=== PATIENT | female | born 1955 | race Caucasian/White ===

== ENCOUNTER → 2016-12-25 | Outpatient (CLI) | payer BC ==
--- NOTE | 2016-12-25 09:54 | MM ---
Reason for exam: additional evaluation requested from prior study. Last mammogram was performed 1 year ago. History: Patient is postmenopausal and has history of breast cancer at age 34. Retro-pectoral saline implants in both breasts, 1989. Reduction of the right breast, 1989. Chemotherapy, April 1989. Mastectomy of the left breast, February 1989. Physical Findings: Nurse did not find any significant physical abnormalities on exam. MG 3D Diag Mammo Imp W/Cad RT CC, MLO, and ID view(s) were taken of the right breast. Prior study comparison: December 13, 2015, right breast MG diag mamm implant RT w CAD. November 15, 2014, right breast MG diagnostic mammo RT w CAD. The breast tissue is extremely dense which could obscure a lesion on mammography. Stable benign calcifications. Implant is intact. No significant new findings when compared with previous films. These results were verbally communicated with the patient and result sheet given to the patient on 12/25/16. ASSESSMENT: Benign, BI-RAD 2 RECOMMENDATION: Follow-up diagnostic mammogram of the right breast in 1 year.
== END | disposition home or self-care (01) ==
LOC: RADMAMWWP 08:14
PROVIDERS: ATTEND Internal Medicine Hematology & Oncology
DX: Z08 Encounter for follow-up examination after completed treatment for malignant neoplasm (principal); Z85.3 Personal history of malignant neoplasm of breast
CPT/HCPCS: G0206; G0279

== ENCOUNTER → 2017-05-17 | Day surgery (SDC) | payer BC ==
[2017-05-15 12:27] VITALS: BMI 23.6
[~2017-05-17] MED LIST: LACTATED RINGERS 1,000 ML IV SCH; LIDOCAINE 1% 20 ML VIAL (10MG/ML) FOR IV START INTRADERMA ONE; MIDAZOLAM 2 MG/2 ML VIAL ONE; PROPOFOL 10 MG/ML 20 ML VIAL IV ONE; fentaNYL (PF) 50 MCG/ML 2 ML AMP ONE
[2017-05-17 08:15] VITALS: RESP 18; TEMP 97.9
--- NOTE | 2017-05-17 09:01 | P.PCN ---
Date of Procedure: 05/17/17 Procedure(s) Performed: BRIEF HISTORY: Patient is a 62-year-old pleasant white female scheduled for an elective colonoscopy as a part of evaluation of screening for colorectal neoplasia. PROCEDURE PERFORMED: Colonoscopy with snare polypectomy. PREOPERATIVE DIAGNOSIS: Screening for colorectal neoplasia. . IV sedation per Anesthesia. PROCEDURE: After informed consent was obtained, the patient, was brought into the endoscopy unit. IV sedation was administered by Anesthesia under continuous monitoring. Digital rectal examination was normal. Initially the Olympus CF- 160 flexible video colonoscope was then inserted in the rectum, gradually advanced into the cecum without any difficulty. Careful examination was performed as the scope was gradually being withdrawn. Ileocecal valve and the appendiceal orifice were visualized and appeared normal. Prep was excellent. Mucosa of the cecum, ascending colon, transverse colon, descending colon, sigmoid colon, appeared normal. In the distal sigmoid colon, at 28 cm from the anal verge, there was a 1.5 cm broad-based polyp removed by snare polypectomy. The rectum appeared normal. Retroflexion was performed in the rectum and no lesions were seen. The patient tolerated the procedure well. IMPRESSION: 1.5 cm broad-based distal sigmoid colon polyp status post polypectomy. RECOMMENDATIONS: Findings of this examination were discussed with the patient as well as a family. She was advised to follow with the biopsy results. If the biopsy shows a tubular adenoma she can have a repeat colonoscopy in 3 years.
[2017-05-17 09:30] VITALS: BP 94/63; PULSE 66
== END ==
LOC: ORWHC2ENDO 07:49
PROVIDERS: ATTEND Internal Medicine Gastroenterology
DX: Z12.11 Encounter for screening for malignant neoplasm of colon (principal); D12.5 Benign neoplasm of sigmoid colon; Z91.041 Radiographic dye allergy status
CPT/HCPCS: 88305; 45385; J2250; J3010; J2704

== ENCOUNTER → 2018-03-11 | Outpatient (CLI) | payer MEDICARE ==
--- NOTE | 2018-03-11 10:47 | MM ---
Reason for exam: additional evaluation requested from prior study. Last mammogram was performed 1 year and 2 months ago. History: Patient is postmenopausal and has history of breast cancer at age 34. Retro-pectoral saline implants in both breasts, 1989. Reduction of the right breast, 1989. Chemotherapy, April 1989. Mastectomy of the left breast, February 1989. Physical Findings: Nurse did not find any significant physical abnormalities on exam. MG Diag Mamm Implant RT w CAD CC, MLO, and ID view(s) were taken of the right breast. Prior study comparison: December 25, 2016, right breast MG 3d diag mammo imp w/cad RT. December 13, 2015, right breast MG diag mamm implant RT w CAD. The breast tissue is extremely dense which could obscure a lesion on mammography. No significant new findings when compared with previous films. These results were verbally communicated with the patient and result sheet given to the patient on 03/11/18. ASSESSMENT: Benign, BI-RAD 2 RECOMMENDATION: Follow-up diagnostic mammogram of the right breast in 1 year.
== END | disposition home or self-care (01) ==
LOC: RADMAMWWP 09:47
PROVIDERS: ATTEND Internal Medicine Hematology & Oncology
DX: Z08 Encounter for follow-up examination after completed treatment for malignant neoplasm (principal); Z85.3 Personal history of malignant neoplasm of breast
CPT/HCPCS: 77065

== ENCOUNTER → 2018-10-23 | Outpatient (CLI) | payer MEDICARE ==
--- NOTE | 2018-10-23 17:33 | BD ---
EXAMINATION TYPE: Axial Bone Density DATE OF EXAM: 10/23/2018 COMPARISON: 2017 CLINICAL HISTORY: 63-year-old female age-related osteoporosis Height: 71 inches Weight: 172 FRAX RISK QUESTIONS: Alcohol (3 or more units per day): no Family History (Parent hip fracture): yes Glucocorticoids (More than 3mos): no (Ex: prednisone, prednisolone, methylprednisolone, dexamethasone, and hydrocortisone). History of Fracture in Adulthood: yes; wrist, toe Secondary Osteoporosis: 1. Type 1 Diabetes: no 2. Hyperthyroidism: no 3. Menopause before 45: no,partial hysterectomy age 41 4. Malnutrition: no 5. Chronic liver disease: no Rheumatoid Arthritis: no Current Tobacco Use: no RISK FACTORS HISTORY OF: History of Wrist Fracture: yes, right When: 1984 Family History of Osteoporosis: no Active: yes Diet low in dairy products/other sources of calcium: at least one serving a day Postmenopausal woman: yes Take estrogen and/or progesterone medications: no Lost more than 2 inches in height since high school: no Frequent falls: no Poor Health: no Hyperparathyroidism: no Adrenal Insufficiency: no MEDICATIONS: Prednisone or other steroids: no Thyroid Medications: no Osteoporosis Medications:no Additional Medications: none Additional History: breast CA age 34 EXAM MEASUREMENTS: Bone mineral densitometry was performed using the [employer] System. Bone mineral density as measured about the Lumbar spine is: ----- L1-L4(G/cm2): 1.179 T Score Values are as follows: ----- L2: -0.7 ----- L3: 0.5 ----- L4: 0.5 ----- L1-L4: 0.0 Bone mineral density has: Increased 3.4% since study of: 03/08/2017 Bone mineral density about the R hip (g/cm2): 0.896 Bone mineral density about the L hip (g/cm2): 0.872 T Score values are as follows: -----R Neck: -1.2 -----L Neck: -1.0 -----R Total: -0.7 -----L Total: -0.6 Bone mineral density has: Decreased -1.9% since study of: 03/08/2017 IMPRESSION: Osteopenia (T Score between -2.5 and -1). There is slightly increased risk of fracture and the patient may be considered for treatment. Re-Screen 2-5 years. NOTE: T-SCORE=SD OF THE YOUNG ADULT MEAN.
== END | disposition home or self-care (01) ==
LOC: RADBDWWP 10:31
PROVIDERS: ATTEND Internal Medicine
DX: M85.88 Other specified disorders of bone density and structure, other site (principal)
CPT/HCPCS: 77080

== ENCOUNTER 2019-10-22 07:22 | Observation (INO) | payer MEDICARE ==
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
[2019-10-22 08:03] LABS: Basophils % (A) 0 %; Eosinophils # (A) 0.2 k/uL (0-0.7); Eosinophils % (A) 2 %; HCT 45.5 % (34.0-46.0); HGB 14.9 gm/dL (11.4-16.0); Lymphocytes # (A) 1.2 k/uL (1.0-4.8); Lymphocytes % (A) 12 %; MCH 32.1 pg (25.0-35.0); MCHC 32.8 g/dL (31.0-37.0); MCV 97.8 fL (80.0-100.0); Mean Platelet Volume 8.9; Monocytes # (A) 0.5 k/uL (0-1.0); Monocytes % (A) 5 %; Neutrophils # (A) 7.9 k/uL (1.3-7.7); Neutrophils % (A) 80 %; Platelet Count 244 k/uL (150-450); RBC 4.65 m/uL (3.80-5.40); RDW 12.1 % (11.5-15.5); WBC 9.9 k/uL (3.8-10.6)
[2019-10-22 08:16] LABS: INR 0.9 (<1.2); Partial Thromboplastin Time 22.1 sec (22.0-30.0); Prothrombin Time 9.6 sec (9.0-12.0)
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
[2019-10-22 08:39] LABS: ALT 40 U/L (4-34); AST 45 U/L (14-36); African American GFR (CKD) >90 (>60 ml/min/1.73 sqM); Albumin 4.4 g/dL (3.5-5.0); Alkaline Phosphatase 70 U/L (38-126); Anion Gap 9 mmol/L; Blood Urea Nitrogen 12 mg/dL (7-17); Calcium 9.2 mg/dL (8.4-10.2); Carbon Dioxide 25 mmol/L (22-30); Chloride 106 mmol/L (98-107); Glucose 102 mg/dL (74-99); Non-African American GFR(CKD) >90 (>60 ml/min/1.73 sqM); Potassium 4.5 mmol/L (3.5-5.1); Sodium 140 mmol/L (137-145); Total Bilirubin 0.5 mg/dL (0.2-1.3); Total Protein 7.3 g/dL (6.3-8.2)
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
[2019-10-22] MEDS ORDERED: NALOXONE 0.4 MG/ML 1 ML VIAL IV PRN (10:08)
[2019-10-22] MEDS ORDERED: SODIUM CHLORIDE 0.9% 1,000 ML IV SCH (10:15)
--- NOTE | 2019-10-22 11:15 | US ---
EXAMINATION TYPE: US carotid duplex BILAT DATE OF EXAM: 10/22/2019 COMPARISON: NONE CLINICAL HISTORY: syncope. Syncope EXAM MEASUREMENTS: RIGHT: Peak Systolic Velocity (PSV) cm/sec ----- Right CCA: 56.5 ----- Right ICA: 76.3 ----- Right ECA: 59.0 ICA/CCA ratio: 1.3 RIGHT: End Diastole cm/sec ----- Right CCA: 20.5 ----- Right ICA: 32.2 ----- Right ECA: 13.0 LEFT: Peak Systolic Velocity (PSV) cm/sec ----- Left CCA: 64.9 ----- Left ICA: 85.6 ----- Left ECA: 79.4 ICA/CCA ratio: 1.3 LEFT: End Diastole cm/sec ----- Left CCA: 20.8 ----- Left ICA: 34.0 ----- Left ECA: 13.4 VERTEBRALS (direction of flow): Right Vertebral: Antegrade Left Vertebral: Antegrade Rhythm: Arrhythmia Bilateral intimal thickening, no elevated velocities, no significant stenosis. Grayscale, color Doppler, spectral Doppler imaging performed of the carotid arteries. Waveform analys is does not show significant stenosis. IMPRESSION: No hemodynamic significant stenosis of the proximal internal carotid arteries by Doppler criteria, an indirect measurement of carotid stenosis. Incidental note made of cardiac arrhythmia.
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
[2019-10-22 18:28] LABS: Amphetamine Screen,Urine Not Detected (NotDetected); Barbiturate Screen,Urine Not Detected (NotDetected); Benzodiazepines Screen,Urine Not Detected (NotDetected); Cocaine Screen,Urine Not Detected (NotDetected); Methadone Screen, Urine Not Detected (NotDetected); Opiate Screen,Urine Not Detected (NotDetected); Oxycodone Screen, Urine Not Detected (NotDetected); Phencyclidine Screen,Urine Not Detected (NotDetected); Tricyclic Antidepressant,Urine Not Detected (NotDetected); Urn Cannabinoid Scrn Not Detected (NotDetected)
--- NOTE | 2019-10-22 19:30 | EEG ---
ELECTROENCEPHALOGRAM REPORT DATE OF SERVICE: 10/22/2019 PREAMBLE: This is a 64-year-old female with a syncopal spell. This study is performed to rule out any epileptiform activity. EEG FINDINGS: This is a 21-channel routine EEG recording in a patient utilizing 10-20 international system with referential and bipolar montages. The background consists of well developed, well regulated, moderate voltage activity in 9-10 hertz alpha. Background is posterior-dominant and reactive to eye opening and closing. Photic driving response was seen with some flash frequencies. Drowsiness and stage 2 sleep were seen with appearance of generalized mixed theta and delta activity with sleep spindles, vertex waves and K complexes. No definitive focal or generalized epileptiform activity was seen. EKG rhythm lead revealed no obvious arrhythmia. IMPRESSION: This is a normal EEG during wakefulness, drowsiness and stage 2 sleep. No definitive epileptiform activity was seen. MMODL / IJN: [id number] /
[2019-10-22] MEDS ORDERED: diphenhydrAMINE 25 MG CAP PO PRN (22:13)
[2019-10-22] MEDS ORDERED: ACETAMINOPHEN TAB 325 MG TAB PO PRN (22:13)
[2019-10-23 01:22] VITALS: RESP 16
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
[2019-10-23] MEDS ORDERED: PANTOPRAZOLE 40 MG TABLET PO SCH (07:30)
[2019-10-23] MEDS ORDERED: HEPARIN SODIUM,PORCINE 5,000 UNIT/ML 1 ML VIAL SQ SCH (08:00)
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
[2019-10-23 08:56] VITALS: BP 119/65; PULSE 77; TEMP 97.7
--- NOTE | 2019-10-23 11:00 | ECHOF ---
Referral Reason:syncope MEASUREMENTS -------- HEIGHT: 180.3 cm WEIGHT: 77.6 kg BP: 120/70 RVIDd: 3.3 cm (< 3.3) IVSd: 1.2 cm (0.6 - 1.1) LVIDd: 3.8 cm (3.9 - 5.3) LVPWd: 1.3 cm (0.6 - 1.1) IVSs: 1.6 cm LVIDs: 2.7 cm LVPWs: 1.9 cm LAESV Index (A-L): 24.90 ml/m Ao Diam: 2.7 cm (2.0 - 3.7) AV Cusp: 2.0 cm (1.5 - 2.6) MV EXCURSION: 10.738 mm (> 18.000) MV EF SLOPE: 71 mm/s (70 - 150) EPSS: 0.5 cm MV E Segun: 0.43 m/s MV DecT: 328 ms MV A Segun: 0.82 m/s MV E/A Ratio: 0.53 RAP: 5.00 mmHg RVSP: 20.27 mmHg FINDINGS -------- This was a technically adequate study. The left ventricular size is normal. There is mild concentric left ventricular hypertrophy. Overa ll left ventricular systolic function is normal with, an EF between 55 - 60 %. The diastolic fillin g pattern is normal for the age of the patient {E/E'}. The right ventricle is mildly enlarged. Moderator band is visualized in the right ventricular apex. Normal LA size by volume 22+/-6 ml/m2. The right atrial size is normal. Mobile interatrial septum. The aortic valve is trileaflet and appears structurally normal. There is no evidence of aortic regu rgitation. There is no evidence of aortic stenosis. No mitral regurgitation. Mild tricuspid regurgitation present. There is no evidence of pulmonary hypertension. The right v entricular systolic pressure, as measured by Doppler, is 20.27mmHg. There is no pulmonic regurgitation present. The aortic root size is normal. Normal inferior vena cava with normal inspiratory collapse consistent with estimated right atrial pre ssure of 5 mmHg. There is no pericardial effusion. CONCLUSIONS -------- 1. This was a technically adequate study. 2. The left ventricular size is normal. 3. There is mild concentric left ventricular hypertrophy. 4. Overall left ventricular systolic function is normal with, an EF between 55 - 60 %. 5. The diastolic filling pattern is normal for the age of the patient {E/E'} 6. The right ventricle is mildly enlarged. 7. Moderator band is visualized in the right ventricular apex. 8. Normal LA size by volume 22+/-6 ml/m2. 9. The right atrial size is normal. 10. Mobile interatrial septum. 11. The aortic valve is trileaflet and appears structurally normal. 12. There is no evidence of aortic regurgitation. 13. There is no evidence of aortic stenosis. 14. No mitral regurgitation. 15. Mild tricuspid regurgitation present. 16. There is no evidence of pulmonary hypertension. 17. The right ventricular systolic pressure, as measured by Doppler, is 20.27mmHg. 18. There is no pulmonic regurgitation present. 19. The aortic root size is normal. 20. Normal inferior vena cava with normal inspiratory collapse consistent with estimated right atrial pressure of 5 mmHg. 21. There is no pericardial effusion. [employer]: Bridgette Knutson RDCS
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
== END 2019-10-23 13:40 | disposition home or self-care (01) ==
LOC: EC 07:22 → 1SOBS 10:16
PROVIDERS: ADMIT Internal Medicine; ATTEND Internal Medicine
DX: R55 Syncope and collapse (principal); S80.212A Abrasion, left knee, initial encounter; S80.211A Abrasion, right knee, initial encounter; S60.812A Abrasion of left wrist, initial encounter; S00.31XA Abrasion of nose, initial encounter; M50.30 Other cervical disc degeneration, unspecified cervical region; M51.36 Other intervertebral disc degeneration, lumbar region; Y93.55 Activity, bike riding; V18.4XXA Pedal cycle driver injured in noncollision transport accident in traffic accident, initial encounter; Z87.828 Personal history of other (healed) physical injury and trauma; Z91.041 Radiographic dye allergy status; Z88.8 Allergy status to other drugs, medicaments and biological substances; Z85.3 Personal history of malignant neoplasm of breast; Z92.21 Personal history of antineoplastic chemotherapy; Z90.12 Acquired absence of left breast and nipple; Z86.010 Personal history of colon polyps; Z82.49 Family history of ischemic heart disease and other diseases of the circulatory system; Z83.3 Family history of diabetes mellitus; Z82.0 Family history of epilepsy and other diseases of the nervous system
CPT/HCPCS: 99285; 36415; 95819; 93005; 93306; 80053; 84484; 85025; 85610; 85730; 80306; 73110; 73562; 71046; 93880; 70450; G0378 ×2; G0480; 80320

== ENCOUNTER → 2020-02-24 | Outpatient (CLI) | payer MEDICARE | END | disposition home or self-care (01) | LOC: LABWHC1 11:55 | PROVIDERS: ATTEND Internal Medicine | DX: Z20.828 Contact with and (suspected) exposure to other viral communicable diseases (principal) | CPT/HCPCS: U0003; C9803 ==

== ENCOUNTER → 2020-03-08 | Outpatient (CLI) | payer MEDICARE ==
--- NOTE | 2020-03-08 09:51 | MM ---
Reason for exam: additional evaluation requested from prior study. Last mammogram was performed 2 years ago. History: Patient is postmenopausal and has history of breast cancer at age 34. Implants in both breasts, 2019. Retro-pectoral saline implants in both breasts, 1989. Reduction of the right breast, 1989. Chemotherapy, April 1989. Mastectomy of the left breast, February 1989. Physical Findings: Nurse did not find any significant physical abnormalities on exam. MG 3D Diag Mammo Imp W/Cad RT CC, MLO, and ID view(s) were taken of the right breast. Prior study comparison: March 11, 2018, right breast MG diag mamm implant RT w CAD. December 25, 2016, right breast MG 3d diag mammo imp w/cad RT. The breast tissue is heterogeneously dense. This may lower the sensitivity of mammography. Benign oil cyst and vascular calcifications. Retropectoral silicone implant. No significant new findings when compared with previous films. These results were verbally communicated with the patient and result sheet given to the patient on 03/08/20. ASSESSMENT: Negative, BI-RAD 1 RECOMMENDATION: Routine screening mammogram of the right breast in 1 year.
== END | disposition home or self-care (01) ==
LOC: RADMAMWWP 08:52
PROVIDERS: ATTEND Internal Medicine Hematology & Oncology
DX: R92.8 Other abnormal and inconclusive findings on diagnostic imaging of breast (principal); Z85.3 Personal history of malignant neoplasm of breast
CPT/HCPCS: 77065; G0279; 77061

== ENCOUNTER → 2020-06-28 | Outpatient (CLI) | payer MEDICARE ==
--- NOTE | 2020-06-28 13:51 | XR ---
EXAMINATION TYPE: XR chest 2V DATE OF EXAM: 06/28/2020 COMPARISON: 10/22/2019 TECHNIQUE: PA and lateral views submitted. HISTORY: Cough FINDINGS: The lungs are clear and there is no pneumothorax, pleural effusion, or focal pneumonia. Hyperinflat ion. Biapical pleural thickening. Surgical clips in the left axilla. Heart is enlarged no overt failu re. Surgical clips overlying the axilla. IMPRESSION: 1. No acute process. 2. COPD.
== END | disposition home or self-care (01) ==
LOC: RADXRMAIN 12:49
PROVIDERS: ATTEND Internal Medicine
DX: J44.9 Chronic obstructive pulmonary disease, unspecified (principal); R05 Cough
CPT/HCPCS: 71046

== ENCOUNTER → 2020-07-04 | Outpatient (CLI) | payer MEDICARE ==
--- NOTE | 2020-07-04 11:27 | CT ---
EXAMINATION TYPE: CT angio chest DATE OF EXAM: 07/04/2020 10:45 AM COMPARISON: Chest x-ray June 28, 2020 HISTORY: Elevated D dimer. History of left-sided breast cancer. CT DLP: 187.6 mGycm Automated exposure control for dose reduction was used. CONTRAST: CTA scan of the thorax is performed with IV Contrast, patient injected with 100 mL of Isovue 370, pul monary embolism protocol. MIP images are created and reviewed. FINDINGS: LUNGS: Mild to moderate biapical pleural/parenchymal scarring. Dependent atelectasis bilateral lower lobes. Mild to moderate linear scarring and/or atelectasis in both bases near diaphragm. No suspiciou s nodules or masses. No suspicious focal consolidation. No pleural effusion or pneumothorax identifie d. MEDIASTINUM: There is satisfactory enhancement of the pulmonary artery and its branches, there is no CT evidence for pulmonary embolism. There are no greater than 1 cm hilar or mediastinal lymph nodes. No pericardial effusion is seen. Heart size upper limits of normal. Aneurysm of the ascending aort a to 4.2 cm axial image 74. OTHER: Subcentimeter low density lesion right hepatic dome anteriorly at [place] 124 too small to fu rther characterize presumed benign. Rim calcified 2.7 cm low dense lesion near the splenic hilum lik jaylin reflects product of prior splenic artery aneurysm embolization stated and patient history. Bilate ral subpectoral breast implants, asymmetric decreased size of right breast implant versus left breast implant is noted. Surgical clips in the left axilla noted. No suspicious greater than 1 cm left axil rodrigo adenopathy. Right breast shows suspicious prominent but just under 1 cm adenopathy for reference 1.1 x 0.7 cm lymph node on image 33 and just superior lateral to this 1.1 x 0.9 cm lymph node axial image 31. No obvious adenopathy recent right breast mammogram March 08, 2020. IMPRESSION: 1. No CT evidence for acute pulmonary embolism. No suspicious acute pulmonary process. 2. Ascending aortic aneurysm up to 4.2 cm in diameter. 3. Nonspecific prominent right axillary lymph nodes. Correlate clinically. Consider dedicated axillar y ultrasound to further evaluate.
== END | disposition home or self-care (01) ==
LOC: RADCTMAIN 06-30 17:57
PROVIDERS: ATTEND Internal Medicine
DX: I71.2 Thoracic aortic aneurysm, without rupture (principal); Z85.3 Personal history of malignant neoplasm of breast
CPT/HCPCS: 71275; Q9967

== ENCOUNTER → 2020-07-05 | Outpatient (CLI) | payer MEDICARE ==
--- NOTE | 2020-07-05 13:34 | ECHOS ---
STRESS ECHOCARDIOGRAM LUMASON: N/A Vial INDICATIONS: Chest pain. MEDICATIONS: BASELINE HEART RATE: 78 BASELINE BLOOD PRESSURE: 138/83 MAXIMUM HEART RATE: 143 MAXIMUM BLOOD PRESSURE: 172/70. 85% MPHR: 130 100% MPHR: 153 METS: 10.3 MAXIMUM STAGE REACHED: 3 TOTAL EXERCISE TIME: 9 minutes CLINICAL INFORMATION: STRESS DATA: Pre-testing physical examination showed a heart rate of 78, pressure is 138/83 mmHg. Baseline EKG showed sinus mechanism. The patient exercised on the treadmill according to Brian protocol for a total of 9 minutes and achieved 10.3 METs. Max heart rate was 143, which is about 95% of maximum predicted heart rate with maximum blood pressure of 172/70 mmHg. Clinically, the patient did not have any symptoms of chest pain or chest discomfort. The EKG did not show any significant ST or T-wave abnormalities concerning for ischemia. ECHOCARDIOGRAM IMAGES: On echocardiogram images from parasternal long axis view, parasternal short axis view, apical 4 chamber and apical 2 chambers were obtained as the baseline images, at the peak of the heart rate as well as on recovery and the echocardiogram images showed good augmentation in the left ventricular systolic function. CONCLUSION: 1. Excellent exercise tolerance. 2. Normal EKG in response to exercise. 3. Normal echocardiogram in response to exercise. MMODL / IJN: [id number] /
== END | disposition home or self-care (01) ==
LOC: RADNMMAIN 09:48
PROVIDERS: ATTEND Internal Medicine
DX: R07.9 Chest pain, unspecified (principal)
CPT/HCPCS: C8930; Q9950; 93351

== ENCOUNTER → 2020-07-19 | Outpatient (CLI) | payer MEDICARE ==
--- NOTE | 2020-07-19 09:01 | MM ---
Reason for exam: additional evaluation requested from prior study. Last mammogram was performed 4 months ago. History: Patient is postmenopausal and has history of breast cancer at age 34. Implants in both breasts, 2018. Retro-pectoral saline implants in both breasts, 1989. Reduction of the right breast, 1989. Chemotherapy, April 1989. Mastectomy of the left breast, February 1989. Physical Findings: Nurse did not find any significant physical abnormalities on exam. MG 3D Diag Mammo Imp W/Cad RT CC, MLO, and ID view(s) were taken of the right breast. Prior study comparison: March 08, 2020, right breast MG 3d diag mammo imp w/cad RT. March 11, 2018, right breast MG diag mamm implant RT w CAD. The breast tissue is heterogeneously dense. This may lower the sensitivity of mammography. Right breast prothesis. No significant new findings when compared with previous films. These results were verbally communicated with the patient and result sheet given to the patient on 07/19/20. ASSESSMENT: Benign, BI-RAD 2 RECOMMENDATION: Follow-up diagnostic mammogram of the right breast in 1 year.
--- NOTE | 2020-07-19 09:04 | USB ---
Reason for exam: clinical finding. History: Patient is postmenopausal and has history of breast cancer at age 34. Implants in both breasts, 2019. Retro-pectoral saline implants in both breasts, 1989. Reduction of the right breast, 1989. Chemotherapy, April 1989. Mastectomy of the left breast, February 1989. US Breast Axilla RT Right breast axilla ultrasound demonstrates a 2.0 x 1.2 x 1.7cm lymph node at the axilla. Covid vaccination 1 month prior. Can cause prominent lymph nodes. Recommend short term follow up. These results were verbally communicated with the patient and result sheet given to the patient on 07/19/20. ASSESSMENT: Probably benign, BI-RAD 3 RECOMMENDATION: Ultrasound of the right breast in 1 month.
== END ==
LOC: RADMAMWWP 07:12
PROVIDERS: ATTEND Internal Medicine
DX: Z85.3 Personal history of malignant neoplasm of breast (principal); Z78.0 Asymptomatic menopausal state
CPT/HCPCS: 77065; 76642; G0279; 77061

== ENCOUNTER → 2020-08-19 | Outpatient (CLI) | payer MEDICARE ==
--- NOTE | 2020-08-22 10:08 | USB ---
Reason for exam: follow-up at short interval from prior study. History: Patient is postmenopausal and has history of breast cancer at age 34. Implants in both breasts, 2019. Retro-pectoral saline implants in both breasts, 1989. Reduction of the right breast, 1989. Chemotherapy, April 1989. Mastectomy of the left breast, February 1989. Physical Findings: Nurse did not find any significant physical abnormalities on exam. US Breast Axilla RT Technologist: Violette Calderon Right breast axilla ultrasound demonstrates a 2.1 x 0.9 x 0.7cm lymph node at the axilla, versus 2.0 x 1.7 x 1.2cm previously. Cortex 1.4mm, thin and benign appearing. Now decreased in size and unremarkable. Previous enhancement likely vaccine related. Scanned the right axilla. These results were verbally communicated with the patient and result sheet given to the patient on 08/19/20. ASSESSMENT: Benign, BI-RAD 2 RECOMMENDATION: Routine screening mammogram of both breasts in 11 months. Back on schedule for July 2021.
== END | disposition home or self-care (01) ==
LOC: RADUSWWP 10:03
PROVIDERS: ATTEND Internal Medicine
DX: N64.4 Mastodynia (principal); Z85.3 Personal history of malignant neoplasm of breast; Z78.0 Asymptomatic menopausal state

== ENCOUNTER → 2020-12-13 | Outpatient (CLI) | payer MEDICARE ==
--- NOTE | 2020-12-14 10:35 | USB ---
Reason for exam: follow-up at short interval from prior study. History: Patient is postmenopausal and has history of breast cancer at age 34. Implants in both breasts, 2019. Retro-pectoral saline implants in both breasts, 1989. Reduction of the right breast, 1989. Chemotherapy, April 1989. Mastectomy of the left breast, February 1989. Physical Findings: Nurse did not find any significant physical abnormalities on exam. US Breast Axilla RT Right breast axilla ultrasound demonstrates a 1.2 x 0.9cm oval lymph node at the axilla tail. These results were verbally communicated with the patient and result sheet given to the patient on 12/13/20. ASSESSMENT: Benign, BI-RAD 2 RECOMMENDATION: Routine screening mammogram of both breasts in 7 months. Back on schedule for July 2021.
== END | disposition home or self-care (01) ==
LOC: RADUSWWP 08:55
PROVIDERS: ATTEND Internal Medicine Hematology & Oncology
DX: Z08 Encounter for follow-up examination after completed treatment for malignant neoplasm (principal); Z78.0 Asymptomatic menopausal state; Z85.3 Personal history of malignant neoplasm of breast

== ENCOUNTER 2021-04-27 08:00 | Day surgery (SDC) | payer MEDICARE ==
[2021-04-25 12:08] VITALS: BMI 22.6
[~2021-04-27 08:00] MED LIST changes: -LIDOCAINE 1% 20 ML VIAL (10MG/ML) FOR IV START INTRADERMA ONE; -MIDAZOLAM 2 MG/2 ML VIAL ONE; -PROPOFOL 10 MG/ML 20 ML VIAL IV ONE; -fentaNYL (PF) 50 MCG/ML 2 ML AMP ONE
[2021-04-27 08:34] VITALS: RESP 16; TEMP 97.8
[2021-04-27] MEDS ORDERED: PROPOFOL 10 MG/ML 20 ML VIAL IV ONE (08:57)
--- NOTE | 2021-04-27 09:19 | P.PCN ---
Date of Procedure: 04/27/21 Procedure(s) Performed: BRIEF HISTORY: Patient is a 66-year-old pleasant white female scheduled for an elective colonoscopy as a part of prior history of colon polyps. Her last coloscopy was 3 years ago and was noted to have an adenoma. PROCEDURE PERFORMED: Colonoscopy With biopsy. PREOPERATIVE DIAGNOSIS: History of colon polyps. IV sedation per Anesthesia. PROCEDURE: After informed consent was obtained, the patient, was brought into the endoscopy unit. IV sedation was administered by Anesthesia under continuous monitoring. Digital rectal examination was normal. Initially the Olympus CF-160 flexible video colonoscope was then inserted in the rectum, gradually advanced into the cecum without any difficulty. Careful examination was performed as the scope was gradually being withdrawn. Ileocecal valve and the appendiceal orifice were visualized and appeared normal. Prep was excellent. Mucosa of the cecum and terminal meter polyp that was removed by cold biopsy. Rest of the, ascending colon, transverse colon, descending colon, sigmoid colon, and rectum appeared normal. The distal rectum there was a 5 limited polyp that was removed by cold biopsy Retroflexion was performed in the rectum and no lesions were seen. The patient tolerated the procedure well. IMPRESSION: 2 mm sessile cecal polyp status post cold biopsy 3 mm rectal polyp status post cold biopsy RECOMMENDATIONS: Findings of this examination were discussed with the patient well as her family. She was advised to follow with the biopsy result and have a repeat colonoscopy in 5 years..
[2021-04-27 09:50] VITALS: BP 101/62; PULSE 64
== END 2021-04-27 10:00 | disposition home or self-care (01) ==
LOC: ORWHC2ENDO 08:00
PROVIDERS: ATTEND Internal Medicine Gastroenterology
DX: D12.6 Benign neoplasm of colon, unspecified (principal); Z12.11 Encounter for screening for malignant neoplasm of colon; D12.0 Benign neoplasm of cecum; K62.1 Rectal polyp; Z86.010 Personal history of colon polyps; I71.4 Abdominal aortic aneurysm, without rupture; E78.5 Hyperlipidemia, unspecified; R56.9 Unspecified convulsions; Z98.42 Cataract extraction status, left eye; Z98.41 Cataract extraction status, right eye; Z90.10 Acquired absence of unspecified breast and nipple; Z98.890 Other specified postprocedural states; Z85.3 Personal history of malignant neoplasm of breast; Z79.899 Other long term (current) drug therapy; Z91.041 Radiographic dye allergy status
CPT/HCPCS: 88305; 45380; J2704

== ENCOUNTER → 2021-08-23 | Outpatient (CLI) | payer MEDICARE ==
--- NOTE | 2021-08-23 15:01 | BD ---
EXAMINATION TYPE: Axial Bone Density DATE OF EXAM: 08/23/2021 COMPARISON: 10/23/2018 CLINICAL HISTORY: 66 years year old Female. ICD-10 CODE: M81.0 AGE RELATED OSTEOPOROSIS Height: 70.5 IN Weight: 170 LBS FRAX RISK QUESTIONS: Family History (Parent hip fracture): MOTHER Secondary Osteoporosis: 3. Menopause before 45: PARTIAL HYST AGE 39 RISK FACTORS HISTORY OF: History of Wrist Fracture: RT WRIST AGE 38 Active: YES Diet low in dairy products/other sources of calcium: YES Postmenopausal woman: PARTIAL HYST AGE 39 MEDICATIONS: Additional Medications: STATIN, Additional History: BREAST CANCER WITH CHEMO EXAM MEASUREMENTS: Bone mineral densitometry was performed using the [employer]. Bone mineral density as measured about the Lumbar spine is: ----- L1-L4(G/cm2): 1.179 T Score Values are as follows: ----- L1: -0.9 ----- L2: -0.6 ----- L3: 0.4 ----- L4: 0.7 ----- L1-L4: 0.0 Bone mineral density has: Increased 0.6% since study of: 10/23/2018 Bone mineral density about the R hip (g/cm2): 0.856 Bone mineral density about the L hip (g/cm2): 0.908 T Score values are as follows: -----R Neck: -1.3 -----L Neck: -0.9 -----R Total: -0.8 -----L Total: -0.7 Bone mineral density has: Decreased -1.6% since study of: 10/23/2018 FRAX%s: The graph provided illustrates a 15.2 chance for a major osteoporotic fx and a 1.9 chance for the hips probability for fx in 10 years time. IMPRESSION: No evidence for osteoporosis or osteopenia NOTE: T-SCORE=SD OF THE YOUNG ADULT MEAN.
== END | disposition home or self-care (01) ==
LOC: RADBDWWP 12:48
PROVIDERS: ATTEND Internal Medicine
DX: M81.0 Age-related osteoporosis without current pathological fracture (principal)
CPT/HCPCS: 77080

== ENCOUNTER → 2021-10-26 | Outpatient (CLI) | payer MEDICARE ==
--- NOTE | 2021-10-26 15:57 | US ---
EXAMINATION TYPE: US thyroid st tissue head/neck DATE OF EXAM: 10/26/2021 COMPARISON: NONE CLINICAL HISTORY: E04.1 NONTOXIC SINGLE THYROID NODULE. F/U to CT scan GLAND SIZE: Right Lobe: 5.1 x 1.8 x 2.1 cm Overall Parenchyma: homogenous Left Lobe: 3.8 x .9 x 1.1 cm Overall Parenchyma: heterogeneous Isthmus Thickness: .3 cm NODULES RIGHT: # of nodules measured on right: 1 1. 1.9 X 1.5 x 1.9 cm, lower lateral, solid or almost completely solid, hypoechoic nodule, which is wider than tall, with smooth . TR 4 LEFT: # of nodules measured on left: 0 ISTHMUS: # of nodules measured in the isthmus: 0 Bilateral neck scanned, no evidence of lymphadenopathy. IMPRESSION: Moderately suspicious nodule. Fine-needle aspiration recommended. 2017 ACR TI-RADS LEVEL: TR-RADS 4 - Moderately Suspicious: Follow if > 1 cm, FNA if > 1.5 cm *Highest TI-RADS level nodule reported
== END | disposition home or self-care (01) ==
LOC: RADUSWWP 14:48
PROVIDERS: ATTEND Internal Medicine
DX: E04.1 Nontoxic single thyroid nodule (principal)
CPT/HCPCS: 76536

== ENCOUNTER → 2022-01-24 | Outpatient (CLI) | payer MEDICARE ==
--- NOTE | 2022-01-25 11:11 | NM ---
EXAMINATION TYPE: NM thyroid image w uptake DATE OF EXAM: 01/25/2022 COMPARISON: Thyroid ultrasound dated 10/26/2021 HISTORY: E04.1 TECHNIQUE: Thyroid iodine uptake is calculated and images performed after the oral administration of 295 uCi 1-123 Capsule. FINDINGS: There is abnormal decreased uptake in the lower pole of the right lobe of the gland which c orrelates with patient's thyroid nodule. The 4 hour iodine uptake is calculated at 1.3% (normal rang e 8-14%). The 24-hour iodine uptake is calculated at 30.0% (normal range 15-35%). IMPRESSION: Cold nodule lower pole right lobe of thyroid gland correlates with abnormal ultrasound.
== END | disposition home or self-care (01) ==
LOC: RADNMMAIN 09:48
PROVIDERS: ATTEND Internal Medicine
DX: E04.1 Nontoxic single thyroid nodule (principal)
CPT/HCPCS: 78014; A9516

== ENCOUNTER → 2022-08-30 | Outpatient (CLI) | payer MEDICARE ==
[2022-08-30 21:04] LABS: Appearance,Urine Clear (Clear); Bilirubin,Urine Negative (Negative); Blood,Urine Negative (Negative); Color,Urine Yellow (Yellow); Ketones,Urine Negative (Negative); Nitrite,Urine Negative (Negative); PH, Urine 6.5 (5.0-8.0); Specific Gravity,Urine 1.009 (1.001-1.030); Urobilinogen,Urine 0.2 (0.2,1.0)
[2022-08-31 01:53] LABS: Basophils # (A) 0.04 X 10*3/uL (0.00-0.10); Basophils % (A) 0.6 %; Eosinophils # (A) 0.13 X 10*3/uL (0.04-0.35); Eosinophils % (A) 2.1 %; HGB 13.7 g/dL (12.0-15.0); Immature Grans, Automated 0.2 %; Lymphocytes # (A) 1.88 X 10*3/uL (0.90-5.00); Lymphocytes % (A) 30.3 %; MCH 30.7 pg (27.0-32.0); MCHC 31.1 g/dL (32.0-37.0); MCV 98.7 fL (80.0-97.0); Mean Platelet Volume 12.1 fL (9.5-12.2); Monocytes # (A) 0.53 X 10*3/uL (0.20-1.00); Monocytes % (A) 8.5 %; NRBC Per 100 WBC 0 /100 WBCS (0.0-0.0); Neutrophils # (A) 3.62 X 10*3/uL (1.80-7.70); Neutrophils % (A) 58.3 %; Platelet Count 236 X 10*3/uL (140-440); RBC 4.46 X 10*6/uL (4.10-5.20); RDW 12.9 % (11.5-14.5); WBC 6.21 X 10*3/uL (4.50-10.00)
[2022-08-31 02:00] LABS: ALT 27 U/L (8-44); AST 26 U/L (13-35); African American GFR (CKD) 102.5 (60.0-200.0); Albumin 4.2 g/dL (3.8-4.9); Albumin/Globulin Ratio 1.62 (1.60-3.17); Alkaline Phosphatase 64 U/L (41-126); BUN/Creat Ratio 18.43 Ratio (12.00-20.00); Blood Urea Nitrogen 12.9 mg/dL (9.0-27.0); Calcium 9.5 mg/dL (8.7-10.3); Carbon Dioxide 27.4 mmol/L (20.0-27.5); Chloride 104 mmol/L (96-109); Chol/HDL Ratio 2.03 Ratio; Globulin 2.6 g/dL (1.6-3.3); Glucose 83 mg/dL (70-110); LDL Cholesterol,Calculated 70.8 mg/dL (0.0-131.0); Non-African American GFR(CKD) 88.4 (60.0-200.0); Potassium 4.3 mmol/L (3.5-5.5); Sodium 141 mmol/L (135-145); Total Protein 6.8 g/dL (6.2-8.2); VLDL Calculation 13.08 mg/dL (5.00-40.00)
== END | disposition home or self-care (01) ==
LOC: LABWHC1 14:37
PROVIDERS: ATTEND Internal Medicine
DX: C50.912 Malignant neoplasm of unspecified site of left female breast (principal); E78.2 Mixed hyperlipidemia; M47.816 Spondylosis without myelopathy or radiculopathy, lumbar region
CPT/HCPCS: 36415; 80053; 80061; 81003; 83036; 85025

== ENCOUNTER → 2022-09-20 | Outpatient (CLI) | payer MEDICARE ==
--- NOTE | 2022-09-21 18:14 | MM ---
Reason for Exam: Screening (asymptomatic). Last screening mammogram was performed 12 month(s) ago. Patient History: Menarche at age 10. First Full-Term at age 23. Hysterectomy at age 41. Postmenopausal. Breast cancer, left, age 34. Previous chemotherapy at age 34. 1989, Reduction on the Right side. 02/1989, Mastectomy on the Left side. 04/1989, Chemotherapy. 1989, Bilateral Implants. 2018, Bilateral Implants. Prior Study Comparison: 03/08/2020 Right Diagnostic Mammogram, [facility]. 07/19/2020 Right Diagnostic Mammogram, [facility]. 09/19/2021 Bilateral MG 3D scr janice unilateral w/cad, [facility]. Tissue Density: Right: The breast tissue is heterogeneously dense. This may lower the sensitivity of mammography. Findings: Retropectoral silicone implant. Benign vascular and will suggest calcifications. No significant change from prior exams. Overall Assessment: Benign, BI-RAD 2 Management: Screening Mammogram of the right breast in 1 year. . Patient should continue monthly self-breast exams. A clinical breast exam by your physician is recommended on an annual basis. This exam should not preclude additional follow-up of suspicious palpable abnormalities. Note on Trina scores and lifetime risk: 1. A Trina score greater than 3% is considered moderate risk. If this is the case, consider specialist referral to assess eligibility for a risk reducing agent. 2. If overall lifetime risk for the development of breast cancer is 20% or higher, the patient may qualify for future screening with alternating mammogram and breast MRI. Electronically signed and approved by: Natasha Coy M.D. Radiologist
== END | disposition home or self-care (01) ==
LOC: RADMAMWWP 09:09
PROVIDERS: ATTEND Internal Medicine Hematology & Oncology
DX: Z12.31 Encounter for screening mammogram for malignant neoplasm of breast (principal); Z78.0 Asymptomatic menopausal state
CPT/HCPCS: 77067

== ENCOUNTER → 2022-10-16 | Outpatient (CLI) | payer MEDICARE ==
[2022-10-16 10:47] LABS: African American GFR (CKD) >90 (>60 ml/min/1.73 sqM); Blood Urea Nitrogen 18 mg/dL (7-17); Non-African American GFR(CKD) >90 (>60 ml/min/1.73 sqM)
--- NOTE | 2022-10-16 14:58 | CT ---
EXAMINATION TYPE: CT angio thor/abd DATE OF EXAM: 10/16/2022 COMPARISON: CT chest 09/19/2021 HISTORY: 67-year-old female I71.21, follow-up ascending aortic aneurysm. CT DLP: 613.5 mGycm. Automated Exposure Control for Dose Reduction was Utilized. CONTRAST: CT scan of the thorax and abdomen is performed without and with IV Contrast, patient injected with 10 0 mL of Isovue 370. Coronal/sagittal reconstructions performed. 3-D reconstructions generated on a de dicated independent workstation. FINDINGS: VASCULATURE: Aorta is ectatic at 3.9 cm, unchanged. Ascending aorta aneurysmal 4.2 cm, unchanged. Conventional branching anatomy. Upper descending thoracic aorta is ectatic at 3.3 cm, unchanged. Middescending thoracic aorta ectatic and 2.6 cm, unchanged. Normal caliber lower descending thoracic aorta at 2.4 cm, unchanged. 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 This appears to been present previously. Otherwise, celiac axis, SMA, and JAD are patent. There are bilateral cysts and renal arteries on both sides. No evidence for abdominal aortic aneurysm. There is mild fusiform dilatation of the distal right common iliac artery up to 1.4 cm but without an y aneurysm. No evidence for aortic dissection or intramural hematoma. CHEST: Bilateral breast prostheses. Heart normal size without pericardial effusion. Borderline caliber to the right and left pulmonary arteries measuring up to 2.6 cm suggesting underly ing pulmonary hypertension. 1 cm nodule right lobe of the thyroid gland. Unchanged. No thoracic lymphadenopathy by CT size criteria. Biapical pleural-parenchymal scarring. 6 mild strandy areas of atelectasis are present. No consolidat ion or pleural effusion. ABDOMEN: Tiny hiatal Hernia. Unchanged 8 mm cyst right liver lobe. Otherwise, liver, gallbladder, adrenal glands, kidneys, spleen appear within normal limits. There is a peripherally calcified cystic lesion adjacent to the tail the pancreas measuring 3.0 cm wh ich is unchanged. Possible chronic pseudocyst. Scattered aavs-rj-gcdtabxy stool. No pericolonic inflammatory change. Mild scattered colonic diverti culosis. Imaging extends only down into the upper pelvis. Bones: Moderate degenerative changes lumbar spine. No osseous destructive process. IMPRESSION: 1. Similar aneurysmal ascending aorta 4.2 cm. Ectatic descending thoracic aorta up to 3.3 cm. 2. 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 In retrospect, this was present previously as well. 3. Suspect underlying pulmonary hypertension. 4. Unchanged peripherally calcified 3.0 cm cystic lesion adjacent to the tail of the pancreas. Query any history of previous pancreatitis in which case, this would represent a chronic pseudocyst. 5. Mild scattered colonic diverticulosis without evidence for acute diverticulitis.
== END | disposition home or self-care (01) ==
LOC: RADCTMAIN 10:07
PROVIDERS: ATTEND Internal Medicine
DX: I71.21 Aneurysm of the ascending aorta, without rupture (principal); K86.2 Cyst of pancreas; K57.30 Diverticulosis of large intestine without perforation or abscess without bleeding
CPT/HCPCS: 82565; 84520; 71275; 74175; 36415; Q9967

== ENCOUNTER → 2023-09-23 | Outpatient (CLI) | payer MEDICARE ==
--- NOTE | 2023-09-27 10:50 | MM ---
Reason for Exam: Screening (asymptomatic). Last screening mammogram was performed 12 month(s) ago. Patient History: Menarche at age 10. First Full-Term at age 23. Hysterectomy at age 41. Postmenopausal. Breast cancer, left, age 34. Previous chemotherapy at age 34. 1989, Reduction on the Right side. 02/1989, Mastectomy on the Left side. 04/1989, Chemotherapy. 1989, Bilateral Implants. 2018, Bilateral Implants. Prior Study Comparison: 07/19/2020 Right Diagnostic Mammogram, [facility]. 09/19/2021 Bilateral MG 3D scr janice unilateral w/cad, [facility]. 09/20/2022 Right MG 3D scr janice unilateral w/cad., [facility]. Tissue Density: Right: The breasts are heterogeneously dense, which may obscure small masses. Findings: Right breast implant appears intact. Right breast: There is no suspicious group of microcalcifications or new suspicious mass. Overall Assessment: Benign, BI-RAD 2 Management: Screening Mammogram of both breasts in [address] [facility] will attempt to contact patient to return for supplemental views and ultrasound if indicated. Patient should continue monthly self-breast exams. A clinical breast exam by your physician is recommended on an annual basis. This exam should not preclude additional follow-up of suspicious palpable abnormalities. Note on Trina scores and lifetime risk: 1. A Trina score greater than 3% is considered moderate risk. If this is the case, consider specialist referral to assess eligibility for a risk reducing agent. 2. If overall lifetime risk for the development of breast cancer is 20% or higher, the patient may qualify for future screening with alternating mammogram and breast MRI. Electronically signed and approved by: Mohamud Gómez DO
== END | disposition home or self-care (01) ==
LOC: RADMAMWWP 09:49
PROVIDERS: ATTEND Internal Medicine Hematology & Oncology
DX: Z12.31 Encounter for screening mammogram for malignant neoplasm of breast (principal); C50.919 Malignant neoplasm of unspecified site of unspecified female breast; Z78.0 Asymptomatic menopausal state
CPT/HCPCS: 77067

== ENCOUNTER → 2023-11-11 | Outpatient (CLI) | payer MEDICARE ==
--- NOTE | 2023-11-17 16:39 | BD ---
EXAMINATION TYPE: Axial Bone Density DATE OF EXAM: 11/11/2023 CLINICAL HISTORY: 68 years old Female. ICD-10 CODE: M85.80 OTH DISRD OF BONE DENSITY AND STRUCTURE, OT Height: 71 Weight: 167.6 FRAX RISK QUESTIONS: Alcohol (3 or more units per day): no Family History (Parent hip fracture): mother Glucocorticoids (More than 3mos): no (Ex: prednisone, prednisolone, methylprednisolone, dexamethasone, and hydrocortisone). History of Fracture in Adulthood: RT Wrist Secondary Osteoporosis: 1. Type 1 Diabetes: no 2. Hyperthyroidism: no 3. Menopause before 45: no 4. Malnutrition: no 5. Chronic liver disease: no Rheumatoid Arthritis: no Current Tobacco Use: no RISK FACTORS HISTORY OF: Hip Fracture (Right/Left): no Spine Fracture: no History of Wrist Fracture: RT Wrist Surgery to Spine/Hip(right/left)/Wrist (right/left): no MEDICATIONS: Thyroid Medications: no Osteoporosis Medications: no EXAM MEASUREMENTS: Bone mineral densitometry was performed using the [employer] System. Bone mineral density as measured about the Lumbar spine is: ----- L1-L4(G/cm2): 1.186 T Score Values are as follows: ----- L1: -1.0 ----- L2: -1.0 ----- L3: 0.2 ----- L4: 1.4 ----- L1-L4: 0.0 Z Score Values are as follows: ----- L1: 0.4 ----- L2: 0.3 ----- L3: 1.5 ----- L4: 2.7 ----- L1-L4: 1.4 Bone mineral density has: increased 0.6 % since study of: 08/23/2021 Bone mineral density about the R hip (g/cm2): 0.873 Bone mineral density about the L hip (g/cm2): 0.878 T Score values are as follows: -----R Neck: -1.2 -----L Neck: -1.0 -----R Total: -1.1 -----L Total: -1.0 Z Score values are as follows: -----R Neck: 0.3 -----L Neck: 0.5 -----R Total: 0.2 -----L Total: 0.2 Bone mineral density has: decreased -4.0 % since study of: 08/23/2021 FRAX%s: The graph provided illustrates a 14.2% chance for a major osteoporotic fx and a 2.9% chance f or the hips probability for fx in 10 years time. IMPRESSION: Osteopenia (T Score between -2.5 and -1). There is slightly increased risk of fracture and the patient may be considered for treatment. Re-Screen 2-5 years. NOTE: T-SCORE=SD OF THE YOUNG ADULT MEAN.
== END | disposition home or self-care (01) ==
LOC: RADBDWWP 16:07
PROVIDERS: ATTEND Internal Medicine
DX: M85.89 Other specified disorders of bone density and structure, multiple sites (principal); Z00.00 Encounter for general adult medical examination without abnormal findings
CPT/HCPCS: 77080

== ENCOUNTER → 2023-12-24 | Outpatient (CLI) | payer MEDICARE ==
--- NOTE | 2024-01-14 14:01 | CT ---
Patient: Karissa Reza G Ordering Physician: Unknown, Unknown ID: [id number] Phone, Pager: Phone: N/A Pager: N/A : [phone] Age/Gender: 68Y, F Primary Location: N/A Procedure: CTA CHEST Study Jose e: 12/24/2023 11:07:28 AM CTA CHEST EXAMINATION TYPE: CT chest angio for PE DATE OF EXAM: 12/24/2023 INDICATION: Thoracic aortic aneurysm CT DLP: 433.5 mGycm, Automated exposure control for dose reduction was used. CONTRAST: Patient injected with 100 mL of Isovue 370. COMPARISON: 10/16/2022 TECHNIQUE: CT of the chest is performed on a spiral scan at 2 mm thick sections. Study is performed with intravenous contrast timed for evaluation for ascending thoracic aortic aneurysm. This will hua it additional portions of the evaluation. FINDINGS: Bilateral breast prostheses are present. Portions of the thyroid visualized has a heterogenous mass w ithin the right lobe thyroid, additional evaluation with thyroid ultrasound is recommended. No mediastinal or hilar adenopathy enlarged by CT criteria is evident. The ascending aorta diameter at the level of the main pulmonary artery is 4.3 cm. The main pulmonary artery diameter at the bifurcation is 3.2 cm. The aorta at the aortic root measures 3.2 cm. Transve rse dimension of the thoracic aorta is 3.3 cm. Descending thoracic aorta tapers normally to the diaph ragm. Aorta at the diaphragm measures 2.5 cm Lung windows are clear. Limited CT sections were through the upper abdomen. Small hepatic cysts within the upper anterior ri ght lobe liver. There is a calcified rounded density in the splenic hilum this is above the tail of t he pancreas and does not enhance following contrast. Thrombosed aneurysm could be considered. IMPRESSION: 1. Ascending thoracic aortic aneurysm of 4.3 cm, stable from comparison. 2. Rounded calcified area above the tail of the pancreas at the splenic hilum stable from comparison.
== END | disposition home or self-care (01) ==
LOC: RADCTMAIN 12-19 13:30
PROVIDERS: ATTEND Internal Medicine Interventional Cardiology
DX: I71.20 Thoracic aortic aneurysm, without rupture, unspecified (principal); E04.1 Nontoxic single thyroid nodule; Z98.82 Breast implant status
CPT/HCPCS: 71275; 36415; Q9967

== ENCOUNTER → 2024-03-30 | Outpatient (CLI) | payer MEDICARE ==
--- NOTE | 2024-03-31 14:45 | US ---
EXAMINATION TYPE: US carotid duplex BILAT DATE OF EXAM: 03/30/2024 COMPARISON: US(10/22/2019) CLINICAL INDICATION: Female, 69 years old with history of I65.23 CAROTID STENOSIS; Additional History: .... TECHNIQUE: Grayscale, color Doppler and spectral Doppler evaluation of the bilateral carotid systems and vertebral arteries. Indirect Doppler criteria was utilized. FINDINGS: EXAM MEASUREMENTS: RIGHT: Peak Systolic Velocity (PSV) cm/sec ----- Right CCA: 107 ----- Right ICA: 149 ----- Right ECA: 85.6 ICA/CCA ratio: 0.6 RIGHT: End Diastole cm/sec ----- Right CCA: 26 ----- Right ICA: 68.0 ----- Right ECA: 15.1 LEFT: Peak Systolic Velocity (PSV) cm/sec ----- Left CCA: 100 ----- Left ICA: 131 ----- Left ECA: 135 ICA/CCA ratio: 1.3 LEFT: End Diastole cm/sec ----- Left CCA: 26 ----- Left ICA: 34.2 ----- Left ECA: 20.9 VERTEBRALS (direction of flow): Right Vertebral: Antegrade Left Vertebral: Antegrade Rhythm: Normal ROLL CLEANER NOTES: Elevated velocities seen at RT Dist ICA / RT vert and LT Mid ICA and LT Prox ECA, no intimal thickening seen, no plaque visualized Color Doppler imaging shows patency with blood flow throughout the carotid artery. Spectral waveforms are within normal limits. IMPRESSION: No evidence for hemodynamically significant stenosis. Criteria for Assigning % of Stenosis / Diameter reduction (Estimation based on the indirect measurements of the internal carotid artery velocities (ICA PSV). 1. Normal (no stenosis)=ICA PSV < 125 cm/s: ratio < 2.0: ICA EDV<40 cm/s. 2. Less than 50% stenosis=ICA PSV < 125 cm/s: ratio < 2.0: ICA EDV<40 cm/s. 3. 50 to 69% stenosis=ICA PSV of 125 to 230 cm/s: ration 2.0 ? 4.0: ICA EDV 40-100 cm/s. 4. Greater than 70% stenosis to near occlusion= ICA PSV > 230 cm/s: ratio > 4.0: ICA EDV > 100 cm/s. 5. Near occlusion= ICA PSV velocities may be low or undetectable: variable ratio and ICA EDV. 6. Total occlusion=unable to detect flow. [facility], , 03/31/2024 2:42 PM
== END | disposition home or self-care (01) ==
LOC: RADUSWWP 15:11
PROVIDERS: ATTEND Internal Medicine
DX: I65.23 Occlusion and stenosis of bilateral carotid arteries (principal)
CPT/HCPCS: 93880

== ENCOUNTER 2024-06-06 16:49 | Emergency (ER) | payer MEDICARE ==
[2024-06-06] MEDS: IBUPROFEN 400 MG TAB PO STA (17:28)
[2024-06-06] MEDS: ACETAMINOPHEN TAB 325 MG TAB PO STA (17:29)
--- NOTE | 2024-06-06 17:41 | ED ---
General Adult HPI - General Chief complaint: Extremity Injury, Upper Stated complaint: L hand injury Time Seen by Provider: 06/06/24 17:13 Source: patient Mode of arrival: ambulatory Limitations: no limitations - History of Present Illness Initial comments: 69-year-old female presenting with chief complaint of left thumb injury. Patient states that last night she accidentally caught her left thumb while closing the car door. She was having bleeding adjacent to her nailbed. States that she put on Neosporin and bandage the wound. Today she was having significant pain and was still having some bleeding from the area so she came to the ER. Her tetanus is up-to-date. She has full range of motion and sensation. There is swelling to the thumb. There is a subungual hematoma present. - Related Data Home Medications Medication Instructions Recorded Confirmed Rosuvastatin [Crestor] 10 mg PO DAILY 04/25/21 04/27/21 Previous Rx's Medication Instructions Recorded Cephalexin [Keflex] 500 mg PO Q6HR 7 Days #28 cap 06/06/24 Allergies Allergy/AdvReac Type Severity Reaction Status Date / Time iohexol [From Omnipaque] Allergy Mild Rash/Hives Verified 06/06/24 17:08 Iodinated Contrast Media Allergy Rash/Hives Verified 06/06/24 17:08 [Iodinated Contrast- Oral and IV Dye] Review of Systems ROS Statement: Those systems with pertinent positive or pertinent negative responses have been documented in the HPI. ROS Other: All systems not noted in ROS Statement are negative. Past Medical History Past Medical History: Cancer, Chest Pain / Angina, Seizure Disorder Additional Past Medical History / Comment(s): Ascending Aortic Aneurysm, "hasn't changed in 2 yrs.", hx left breast cancer -1988- no radiation, received chemo, cervical/lumbar DDD with occasional neck/back pain, palpitations, none recently, hx febrile seixzure X1 many yrs ago. History of Any Multi-Drug Resistant Organisms: None Reported Past Surgical History: Breast Surgery, Orthopedic Surgery Additional Past Surgical History / Comment(s): Left masectomy with breast reconstruction, hylum [facility], colonoscopies/benign polypectomy, bladder suspension, L shoulder rotator cuff repair, R 4th finger joint replacement, bilateral cataract removal/lens implants. Past Anesthesia/Blood Transfusion Reactions: No Reported Reaction Past Psychological History: No Psychological Hx Reported Smoking Status: Former smoker Past Alcohol Use History: Occasional Past Drug Use History: Marijuana - Past Family History Mother Family Medical History: Coronary Artery Disease (CAD), Diabetes Mellitus, Myocardial Infarction ([place]) Additional Family Medical History / Comment(s): Mother of a [place] at the age of 85 yrs. Father Family Medical History: Deep Vein Thrombosis (DVT), Neurologic Disorder Additional Family Medical History / Comment(s): [facility]. General Exam Limitations: no limitations General appearance: alert, in no apparent distress Head exam: Present: atraumatic, normocephalic, normal inspection Eye exam: Present: normal appearance, EOMI Neck exam: Present: normal inspection. Absent: meningismus Respiratory exam: Absent: respiratory distress Cardiovascular Exam: Present: regular rate Neurological exam: Present: alert, oriented X3 Psychiatric exam: Present: normal affect, normal mood Skin exam: Present: other (There are some superficial cuts near the nailbed of the left thumb, there is bruising and swelling as well) Course Vital Signs 06/06/24 17:04 Temperature 98.3 F Pulse Rate 88 Respiratory 16 Rate Blood Pressure 113/73 O2 Sat by Pulse 97 Oximetry Medical Decision Making - Medical Decision Making [facility], she will follow-up with their office Was pt. sent in by a medical professional or institution (MARK Lanza, [facility] [facility], urgent care, hospital, or assisted...) When possible be specific @ -No Did you speak to anyone other than the patient for history (EMS, parent, family, police, friend...)? What history was obtained from this source @ -No Did you review nursing and triage notes (agree or disagree)? Why? @ -I reviewed and agree with nursing and triage notes Were old charts reviewed (outside hosp., previous admission, EMS record, old EKG, old radiological studies, urgent care reports/EKG's, assisted records)? Report findings @ -No old charts were reviewed Differential Diagnosis (chest pain, altered mental status, abdominal pain women, abdominal pain men, vaginal bleeding, weakness, fever, dyspnea, syncope, headache, dizziness, GI bleed, back pain, seizure, CVA, palpatations, mental health, musculoskeletal)? @ -Differential includes fracture, dislocation, sprain, strain, not an all- inclusive list EKG interpreted by me (3pts min.). @ -As above X-rays interpreted by me (1pt min.). @ -X-ray shows nondisplaced fracture of the first digit phalanx shaft and small avulsion fracture at the base of the first digit phalanx CT interpreted by me (1pt min.). @ -None done U/S interpreted by me (1pt. min.). @ -None done What testing was considered but not performed or refused? (CT, X-rays, U/S, labs)? Why? @ -None What meds were considered but not given or refused? Why? @ -None Did you discuss the management of the patient with other professionals (professionals i.e. , PA, [facility], lab, RT, psych nurse, certified social workers in health care, social security assessor, teacher, loan service officer, gearcase assembler)? Give summary @ -No Was smoking cessation discussed for >3mins.? @ -No Was critical care preformed (if so, how long)? @ -No Were there social determinants of health that impacted care today? How? (Homelessness, low income, unemployed, alcoholism, drug addiction, transportation, low edu. Level, literacy, decrease access to med. care, senior care, rehab)? @ -No Was there de-escalation of care discussed even if they declined (Discuss DNR or withdrawal of care, Hospice)? DNR status @ -No What co-morbidities impacted this encounter? (DM, HTN, Smoking, COPD, CAD, Cancer, CVA, ARF, Chemo, Hep., AIDS, mental health diagnosis, sleep apnea, morbid obesity)? @ -None Was patient admitted / discharged? Hospital course, mention meds given and route, prescriptions, significant lab abnormalities, going to OR and other pertinent info. @ -69-year-old female presenting with chief complaint of injury to the left thumb. She close in a car door last night. She does have a minor cut near the nailbed which is amount of bleeding. Her tetanus is up-to-date. X-ray is positive for nondisplaced fracture of the distal phalanx. The wound was thoroughly irrigated, dressing is applied, splint is applied. Patient is educated on wound care and signs of infection. Started on Keflex. [facility], she will follow-up with them. Follow-up with PCP. Report back to ER with any new or worsening symptoms. Discussed return parameters and answered all questions. Patient conveyed verbal understanding and agreed to the plan. I discussed this case in detail with my attending Dr. Reynoso Undiagnosed new problem with uncertain prognosis? @ -No Drug Therapy requiring intensive monitoring for toxicity (Heparin, Nitro, Insulin, Cardizem)? @ -No Were any procedures done? @ -No Diagnosis/symptom? @ -Distal phalanx fracture Acute, or Chronic, or Acute on Chronic? @ -Acute Uncomplicated (without systemic symptoms) or Complicated (systemic symptoms)? @ -Uncomplicated Side effects of treatment? @ -No Exacerbation, Progression, or Severe Exacerbation? @ -No Poses a threat to life or bodily function? How? (Chest pain, [place], ID, pneumonia, PE, COPD, DKA, ARF, appy, cholecystitis, CVA, Diverticulitis, Homicidal, Suicidal, threat to staff... and all critical care pts) @ -Unlikely Disposition Clinical Impression: Fracture of distal phalanx of finger Disposition: HOME SELF-CARE Condition: Good Instructions (If sedation given, give patient instructions): Finger Fracture (ED) Additional Instructions: Follow-up with PCP and orthopedics. Report back to ER if any new or worsening symptoms. Keep the wound clean dry and covered. Wash daily with soap and water. Keep your finger splint applied until cleared by orthopedics. Take medication as prescribed. Take Motrin and Tylenol as needed for pain control. Prescriptions: Cephalexin [Keflex] 500 mg PO Q6HR 7 Days #28 cap Is patient prescribed a controlled substance at d/c from ED?: No Referrals: Frank Masters MD [Primary Care Provider] - 1-2 days Dheeraj Velazquez DO [Doctor of Osteopathic Medicine] - 1-2 days Time of Disposition: 18:32
--- NOTE | 2024-06-06 18:10 | XR ---
EXAMINATION TYPE: XR finger LT DATE OF EXAM: 06/06/2024 5:58 PM COMPARISON: Previous chest radiograph 10/22/2019. CLINICAL INDICATION: Female, 69 years old with history of injury; [facility] TECHNIQUE: XR finger LT Frontal, lateral and oblique views were obtained. FINDINGS: Nondisplaced fracture of the first digit phalanx shaft with overlying soft tissue swelling. Additiona l small avulsion fracture at the base of the first digit phalanx. Osseous structures demineralized. N o unexpected opaque foreign body. No focal osseous erosion or aggressive periosteal reaction. IMPRESSION: Nondisplaced fracture of the first digit phalanx shaft and small avulsion fracture at the base of the first digit phalanx. [facility], , 06/06/2024 6:07 PM
[2024-06-06] MEDS: CEPHALEXIN 500MG STARTER PACK 4 CAP BTL PO STA (18:37)
[2024-06-06 18:48] VITALS: BP 133/78; PULSE 78; RESP 18; TEMP 98.1
== END 2024-06-06 19:18 | disposition home or self-care (01) ==
LOC: EC 16:49
DX: S62.525A Nondisplaced fracture of distal phalanx of left thumb, initial encounter for closed fracture (principal); Z87.891 Personal history of nicotine dependence; Z91.041 Radiographic dye allergy status; Z88.8 Allergy status to other drugs, medicaments and biological substances; W23.0XXA Caught, crushed, jammed, or pinched between moving objects, initial encounter
CPT/HCPCS: 99283

== ENCOUNTER 2024-07-02 07:23 | Emergency (ER) | payer MEDICARE ==
[2024-07-02 07:32] VITALS: RESP 18
--- NOTE | 2024-07-02 08:05 | XR ---
EXAMINATION TYPE: XR Hip Complete LT DATE OF EXAM: 07/02/2024 CLINICAL HISTORY: Pain TECHNIQUE: AP and frogleg views of the left hip are obtained. COMPARISON: None. FINDINGS: There is no acute fracture/dislocation evident in the left hip. Mild axial joint space los s left hip. Femoral head shape is maintained. The overlying soft tissue appears unremarkable. IMPRESSION: As above. [facility], , 07/02/2024 8:03 AM
--- NOTE | 2024-07-02 08:27 | ED ---
Extremity Problem HPI - General Chief complaint: Extremity Problem,Nontraumatic Stated complaint: left hip pain Time Seen by Provider: 07/02/24 07:33 Source: patient Mode of arrival: wheelchair Limitations: no limitations - History of Present Illness Initial comments: 69-year-old female presents emergency department reporting left hip pain. Patient states that she went out walking and snow shoes a few days ago. She did not have any pain originally after she went out however yesterday the patient started developing an ache in the left lateral aspect of her hip. She has been ambulatory. She gets Tylenol which does not seem to alleviate the pain. She denies any knee or ankle pain. No redness or swelling to the site. Denies any history of hip replacement. Patient denies history of chronic hip pain. She denies any trauma or falls. Patient does not take any blood thinners. No report of any fevers. No other alleviating, precipitating modifying factors - Related Data Home Medications Medication Instructions Recorded Confirmed Rosuvastatin [Crestor] 10 mg PO DAILY 04/25/21 04/27/21 Previous Rx's Medication Instructions Recorded Cephalexin [Keflex] 500 mg PO Q6HR 7 Days #28 cap 06/06/24 predniSONE [Deltasone] 20 mg PO BID #10 tab 07/02/24 Allergies Allergy/AdvReac Type Severity Reaction Status Date / Time iohexol [From Omnipaque] Allergy Mild Rash/Hives Verified 07/02/24 07:32 Iodinated Contrast Media Allergy Rash/Hives Verified 07/02/24 07:32 [Iodinated Contrast- Oral and IV Dye] Review of Systems ROS Statement: Those systems with pertinent positive or pertinent negative responses have been documented in the HPI. ROS Other: All systems not noted in ROS Statement are negative. Past Medical History Past Medical History: Cancer, Chest Pain / Angina, Seizure Disorder Additional Past Medical History / Comment(s): Ascending Aortic Aneurysm, "hasn't changed in 2 yrs.", hx left breast cancer -1988- no radiation, received chemo, cervical/lumbar DDD with occasional neck/back pain, palpitations, none recently, hx febrile seixzure X1 many yrs ago. 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 Past Anesthesia/Blood Transfusion Reactions: No Reported Reaction Past Psychological History: No Psychological Hx Reported Smoking Status: Former smoker Past Alcohol Use History: Occasional Past Drug Use History: Marijuana - Past Family History Mother Family Medical History: Coronary Artery Disease (CAD), Diabetes Mellitus, Myocardial Infarction ([place]) Additional Family Medical History / Comment(s): Mother of a [place] at the age of 85 yrs. Father Family Medical History: Deep Vein Thrombosis (DVT), Neurologic Disorder Additional Family Medical History / Comment(s): Father from [place]. General Exam Limitations: no limitations General appearance: alert, in no apparent distress Head exam: Present: atraumatic, normocephalic, normal inspection Extremities exam: Present: tenderness (To palpation of the lateral aspect of the left hip. No redness or swelling. Full normal range of motion at the knee and ankle. Pain with flexion at the hip) Course Vital Signs 07/02/24 07/02/24 07:27 10:22 Temperature 98.4 F 98.0 F Pulse Rate 85 80 Respiratory 18 18 Rate Blood Pressure 118/81 120/76 O2 Sat by Pulse 96 97 Oximetry Medical Decision Making - Medical Decision Making Was pt. sent in by a medical professional or institution (MARK Lanza, CLOTH SPREADER, urgent care, hospital, or skilled nursing...) When possible be specific @ -No Did you speak to anyone other than the patient for history (EMS, parent, family, police, friend...)? What history was obtained from this source @ -No Did you review nursing and triage notes (agree or disagree)? Why? @ -I reviewed and agree with nursing and triage notes Were old charts reviewed (outside hosp., previous admission, EMS record, old EKG, old radiological studies, urgent care reports/EKG's, skilled nursing records)? Report findings @ -No old charts were reviewed Differential Diagnosis (chest pain, altered mental status, abdominal pain women, abdominal pain men, vaginal bleeding, weakness, fever, dyspnea, syncope, headache, dizziness, GI bleed, back pain, seizure, CVA, palpatations, mental health, musculoskeletal)? @ -Differential Musculoskeletal Muscular strain, contusion, ligament sprain, fracture, arthritis, septic arthritis, bursitis, cellulitis, muscle spasm, nerve compression, DVT, arterial occlusion, herpes zoster, electrolyte abnormality, tumor.... This is not meant to be in all inclusive list EKG interpreted by me (3pts min.). @ -Not done X-rays interpreted by me (1pt min.). @ -Yes which demonstrates no fracture CT interpreted by me (1pt min.). @ -None done U/S interpreted by me (1pt. min.). @ -None done What testing was considered but not performed or refused? (CT, X-rays, U/S, labs)? Why? @ -None What meds were considered but not given or refused? Why? @ -None Did you discuss the management of the patient with other professionals (didier bess i.e. , PA, CLOTH SPREADER, lab, RT, psych nurse, clinical social work aide, circuit recorder, teacher, animal control officer, case consultant)? Give summary @ -No Was smoking cessation discussed for >3mins.? @ -No Was critical care preformed (if so, how long)? @ -No Were there social determinants of health that impacted care today? How? (Homelessness, low income, unemployed, alcoholism, drug addiction, transportation, low edu. Level, literacy, decrease access to med. care, [facility], rehab)? @ -No Was there de-escalation of care discussed even if they declined (Discuss DNR or withdrawal of care, Hospice)? DNR status @ -No What co-morbidities impacted this encounter? (DM, HTN, Smoking, COPD, CAD, Cancer, CVA, ARF, Chemo, Hep., AIDS, mental health diagnosis, sleep apnea, morbid obesity)? @ -None Was patient admitted / discharged? Hospital course, mention meds given and route, prescriptions, significant lab abnormalities, going to OR and other pertinent info. @ -Upon arrival patient seen and evaluated in room 32. Thorough history and physical exam was performed. Patient was given a dose of Toradol for pain control. X-rays performed which demonstrates no fractures. I did discuss the differential which the patient. I am concerned for tendinitis versus bursitis. Patient was agreeable to a dose of steroids. I did discuss NSAID versus steroids and patient would prefer a dose of steroids at this time. She is not a diabetic. Side effect profile is discussed with the patient in regards to this medication. At this time she is to rest and elevate the left extremity with no significant physical activity. She is [facility] and return for any new or worsening symptoms Undiagnosed new problem with uncertain prognosis? @ -No Drug Therapy requiring intensive monitoring for toxicity (Heparin, Nitro, Insulin, Cardizem)? @ -No Were any procedures done? @ -No Diagnosis/symptom? @ -Acute left hip pain Acute, or Chronic, or Acute on Chronic? @ -Acute Uncomplicated (without systemic symptoms) or Complicated (systemic symptoms)? @ -Uncomplicated Side effects of treatment? @ -No Exacerbation, Progression, or Severe Exacerbation? @ -No Poses a threat to life or bodily function? How? (Chest pain, [place], [place], pneumonia, PE, COPD, DKA, ARF, appy, cholecystitis, CVA, Diverticulitis, Homicidal, Suicidal, threat to staff... and all critical care pts) @ -No Disposition Clinical Impression: Left hip pain, Bursitis Disposition: HOME SELF-CARE Condition: Stable Instructions (If sedation given, give patient instructions): Hip Bursitis (ED) Additional Instructions: Please take the steroids starting tomorrow as you did get your first dose in the emergency department. Rest and elevate the extremity. Take Tylenol every 6 hours as needed for pain. Follow-up with the orthopedic doctor if your pain continues and return for any new or worsening symptoms Prescriptions: predniSONE [Deltasone] 20 mg PO BID #10 tab Is patient prescribed a controlled substance at d/c from ED?: No Referrals: Frank Masters MD [Primary Care Provider] - 1-2 days Red Fuller MD [STAFF PHYSICIAN] - 1-2 days Time of Disposition: 10:08
[2024-07-02] MEDS: KETOROLAC 15 MG/ML 1 ML VIAL IM STA (10:14)
[2024-07-02] MEDS: predniSONE 20 MG TAB PO STA (10:14)
[2024-07-02 10:26] VITALS: BP 120/76; PULSE 80; TEMP 98
== END 2024-07-02 10:23 | disposition home or self-care (01) ==
LOC: EC 07:23
DX: M71.552 Other bursitis, not elsewhere classified, left hip (principal); Z91.041 Radiographic dye allergy status; Z88.8 Allergy status to other drugs, medicaments and biological substances; Z87.891 Personal history of nicotine dependence
CPT/HCPCS: 73502; 99283; 96372; J1885; J7512

== ENCOUNTER → 2024-09-21 | Outpatient (CLI) | payer MEDICARE ==
--- NOTE | 2024-09-21 11:25 | XR ---
EXAMINATION TYPE: XR chest 2V DATE OF EXAM: 09/21/2024 11:17 AM COMPARISON: 06/28/2020 CLINICAL INDICATION: Female, 69 years old with history of R06.02 SOB, , TECHNIQUE: Frontal and lateral views FINDINGS: Heart borderline in size. Hyperinflation. Hazy lower lung densities relating to overlying soft tissue . Surgical clips left axilla. No consolidation or pleural effusion. IMPRESSION: Borderline heart size and COPD. No acute process seen. [facility], , 09/21/2024 11:22 AM
== END | disposition home or self-care (01) ==
LOC: RADXRMAIN 10:56
PROVIDERS: ATTEND Internal Medicine
DX: J44.9 Chronic obstructive pulmonary disease, unspecified (principal)
CPT/HCPCS: 71046

== ENCOUNTER → 2024-09-23 | Outpatient (CLI) | payer MEDICARE ==
--- NOTE | 2024-09-23 11:47 | MM ---
Reason for Exam: Screening (asymptomatic). Last screening mammogram was performed 12 month(s) ago. Patient History: Menarche at age 10. First Full-Term at age 23. Hysterectomy at age 41. Postmenopausal. Breast cancer, left, age 34. Previous chemotherapy at age 34. 1989, Reduction on the Right side. 02/1989, Mastectomy on the Left side. 04/1989, Chemotherapy. 1989, Bilateral Implants. 2018, Bilateral Implants. Prior Study Comparison: 09/19/2021 Bilateral MG 3D scr janice unilateral w/cad, [facility]. 09/20/2022 Right MG 3D scr janice unilateral w/cad., [facility]. 09/23/2023 Right MG 3D scr jnaice unilateral w/cad., [facility]. Tissue Density: Right: The breasts are heterogeneously dense, which may obscure small masses. Findings: Right breast implant appears intact. Right breast: Area of palpable abnormality in the right breast and measures large calcified shadowing lesion measuring up to 28 x 13 x 35 mm. There is no suspicious group of microcalcifications or new suspicious mass. Left breast: Few Scattered Shadowing Calculi Identified. No Suspicious Masses Or Fluid Collections. * 11:00 2 cm from the nipple measuring 5 mm. * 12:00 2 cm from the nipple measuring 24 Mm. * 1:00 7 cm from the nipple measuring 7 mm. Overall Assessment: Benign, BI-RAD 2 Management: Screening Mammogram of both breasts in [address] [facility] will attempt to contact patient to return for supplemental views and ultrasound if indicated. Patient should continue monthly self-breast exams. A clinical breast exam by your physician is recommended on an annual basis. This exam should not preclude additional follow-up of suspicious palpable abnormalities. Note on Trina scores and lifetime risk: 1. A Trina score greater than 3% is considered moderate risk. If this is the case, consider specialist referral to assess eligibility for a risk reducing agent. 2. If overall lifetime risk for the development of breast cancer is 20% or higher, the patient may qualify for future screening with alternating mammogram and breast MRI. [facility], , 09/23/2024 11:43 AM. Electronically signed and approved by: Mohamud Gómez DO
== END | disposition home or self-care (01) ==
LOC: RADMAMWWP 11:01
PROVIDERS: ATTEND Internal Medicine Hematology & Oncology
DX: Z12.31 Encounter for screening mammogram for malignant neoplasm of breast (principal); R92.333 Mammographic heterogeneous density, bilateral breasts; Z78.0 Asymptomatic menopausal state; Z85.3 Personal history of malignant neoplasm of breast; Z98.82 Breast implant status
CPT/HCPCS: 77067